=== PATIENT | female | born 1990 | race Caucasian/White ===

== ENCOUNTER 2021-01-26 22:03 | Emergency (ER) | payer OTHER ==
[~2021-01-26] VITALS: Ht 157.5 cm; Wt 80.0 kg
[2021-01-27 00:20] LABS: MICROSCOPIC NOT IND
[2021-01-27 00:38] VITALS: BP 117/69
== END 2021-01-27 00:39 | disposition home or self-care (01) ==
LOC: ED 23:59
DX: O98.511 Other viral diseases complicating pregnancy, first trimester (principal); U07.1 COVID-19; J06.9 Acute upper respiratory infection, unspecified; Z3A.09 9 weeks gestation of pregnancy
CPT/HCPCS: 76801; 81003; 99284; U0003; U0005